=== PATIENT | female | born 1995 | race Two or more races ===

== ENCOUNTER 2023-06-04 18:57 | Emergency (ER) | payer BC, OTHER ==
[~2023-06-04] VITALS: Ht 147.3 cm; Wt 55.4 kg
[2023-06-04 19:35] VITALS: BP 133/75; PULSE 107; RESP 16; O2SAT 99
== END 2023-06-04 20:59 | disposition left against medical advice (07) ==
LOC: ER 18:57
DX: R05.9 Cough, unspecified (principal); J02.9 Acute pharyngitis, unspecified; M79.10 Myalgia, unspecified site

== ENCOUNTER 2024-07-30 19:41 | Emergency (ER) | payer BC ==
[~2024-07-30] VITALS: Ht 147.3 cm; Wt 63.4 kg
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
[2024-07-30] MEDS ORDERED: TIZA-142 PO (20:52)
[2024-07-30] MEDS ORDERED: METH4PAK PO (20:52)
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
[2024-07-30] MEDS: KETOROLAC TROMETH 60MG/2ML VIAL IM ONE (21:13)
[2024-07-30 21:18] VITALS: BP 110/67; PULSE 74; RESP 18; TEMP 98.7; O2SAT 98
== END 2024-07-30 21:34 | disposition home or self-care (01) ==
LOC: ER 19:41
DX: S13.4XXA Sprain of ligaments of cervical spine, initial encounter (principal); G44.301 Post-traumatic headache, unspecified, intractable; V43.52XA Car driver injured in collision with other type car in traffic accident, initial encounter; Y93.I9 Activity, other involving external motion; Y92.488 Other paved roadways as the place of occurrence of the external cause; Y99.8 Other external cause status
CPT/HCPCS: 72040; 96372; 99283; J1885